=== PATIENT | female | born 1975 | race Hispanic/Latino ===

== ENCOUNTER → 2022-10-05 | Outpatient (CLI) | payer BC ==
[~2022-10-05] MED LIST: CYCL-309 PO; MELO7.5T12 PO; ONDA4TAB10 PO
== END | disposition home or self-care (01) ==
LOC: RAH 14:20
PROVIDERS: ATTEND Emergency Medicine
DX: Z12.31 Encounter for screening mammogram for malignant neoplasm of breast (principal)
CPT/HCPCS: 77067

== ENCOUNTER 2024-03-24 08:08 | Day surgery (SDC) | payer BC ==
[~2024-03-24] VITALS: Ht 149.9 cm; Wt 76.2 kg
[2024-03-24] VITALS (11 sets, daily range): BP systolic 104–128; BP diastolic 60–78; PULSE 45–70; RESP 12–18; TEMP 97.2–97.9
[2024-03-24] MEDS: 0.9%NACL 1000ML 1,000 ML IV ONE (10:00)
[2024-03-24] MEDS ORDERED: proPOFol 10 MG/ML 20ML VIAL IV ONE ×2 (11:24→11:25)
== END 2024-03-24 13:00 | disposition home or self-care (01) ==
LOC: DAH 08:08
PROVIDERS: ATTEND Internal Medicine
DX: K62.5 Hemorrhage of anus and rectum (principal); K29.50 Unspecified chronic gastritis without bleeding; K64.0 First degree hemorrhoids; K64.4 Residual hemorrhoidal skin tags; K31.89 Other diseases of stomach and duodenum; R11.0 Nausea; R14.2 Eructation; M19.90 Unspecified osteoarthritis, unspecified site; E66.9 Obesity, unspecified; Z68.31 Body mass index [BMI] 31.0-31.9, adult; Z79.899 Other long term (current) drug therapy
CPT/HCPCS: 81025; 45378; 43239; J7030 ×2; J2704 ×2; A4620; A4215 ×2; A4223; A4222; A4221; A4663; A4606; J3490